=== PATIENT | female | born 1960 | race Caucasian/White ===

== ENCOUNTER → 2017-09-21 | Outpatient (CLI) | payer OTHER ==
--- NOTE | 2017-09-21 13:36 | MAMMOGRAPHY REPORT ---
BILATERAL DIGITAL SCREENING MAMMOGRAM TOMOSYNTHESIS WITH CAD: 09/21/2017 CLINICAL HISTORY: Routine screening. Patient has no complaints. TECHNIQUE: Breast tomosynthesis in addition to standard 2D mammography was performed. Current study was also evaluated with a Computer Aided Detection (CAD) system. COMPARISON: Comparison is made to exams dated: 08/20/2015 mammogram, 08/14/2014 mammogram, 08/08/2013 m ammogram, 07/31/2012 mammogram, 07/31/2011 mammogram, and 08/05/2010 mammogram - [facility]. BREAST COMPOSITION: The tissue of both breasts is extremely dense, which lowers the sensitivity of m ammography. FINDINGS: No suspicious masses, calcifications, or areas of architectural distortion are noted in ei ther breast. There has been no significant interval change compared to prior exams. IMPRESSION: ACR BI-RADS CATEGORY 1: NEGATIVE There is no mammographic evidence of malignancy. A 1 year screening mammogram is recommended. The pa tient will receive written notification of the results. Approximately 10% of breast cancers are not detected with mammography. A negative mammographic report should not delay biopsy if a clinically suggestive mass is present. Anila Watkins M.D. /:09/21/2017 07:37:41 Silk Finisher: Berna Fish, [facility] letter sent: Normal 1/2 BI-RADS Code: ACR BI-RADS Category 1: Negative
== END | disposition home or self-care (01) ==
LOC: C.MAMM 07:16
PROVIDERS: ATTEND Nurse Practitioner Family
DX: Z12.31 Encounter for screening mammogram for malignant neoplasm of breast (principal)

== ENCOUNTER 2023-07-03 08:24 | Observation (INO) ==
--- NOTE | 2023-06-07 09:41 | PAT Medication Instructions ---
Medication Instructions Date of Service June 07, 2023 Home Medications Biest 1 ml topical QAM cholecalciferol (vitamin D3) 10 mcg (400 unit) capsule (Vitamin D3) 1,000 unit PO QAM famotidine 20 mg tablet 20 mg PO DAILY PRN ibuprofen 200 mg tablet 200 mg PO UD PRN progesterone micronized 100 mg capsule 100 mg PO HS trazodone 50 mg tablet 75 mg PO HS zolpidem 5 mg tablet 5 mg PO HS PRN ascorbic acid (vitamin C) 500 mg tablet (Vitamin C) 0 mg PO DAILY calcium 600 mg capsule 0 mg PO QPM multivitamin-ferrous fumarate-folic acid 18 mg-400 mcg tablet (Centrum Women) 1 tab PO QPM naproxen sodium 220 mg tablet (Aleve) 220 mg PO UD PRN turmeric 400 mg capsule 0 mg PO QAM Continue as directed famotidine 20 mg tablet 20 mg PO DAILY PRN(if needed) ASK your surgeon for instructions ibuprofen 200 mg tablet 200 mg PO UD PRN naproxen sodium 220 mg tablet (Aleve) 220 mg PO UD PRN STOP taking 2 weeks before surgery (or as soon as possible if surgery is within 2 weeks) Biest 1 ml topical QAM turmeric 400 mg capsule 0 mg PO QAM DO NOT take the morning of surgery cholecalciferol (vitamin D3) 10 mcg (400 unit) capsule (Vitamin D3) 1,000 unit PO QAM ascorbic acid (vitamin C) 500 mg tablet (Vitamin C) 0 mg PO DAILY Take morning of surgery With a small sip of water, OTHERWISE NOTHING TO EAT OR DRINK AFTER MIDNIGHT: Take evening before surgery progesterone micronized 100 mg capsule 100 mg PO HS trazodone 50 mg tablet 75 mg PO HS zolpidem 5 mg tablet 5 mg PO HS PRN(if needed) calcium 600 mg capsule 0 mg PO QPM multivitamin-ferrous fumarate-folic acid 18 mg-400 mcg tablet (Centrum Women) 1 tab PO QPM Other Notes If you have any questions please call us at [phone] or [phone] or [phone] or [phone]
--- NOTE | 2023-06-12 09:53 | Anesthesiology Consultation ---
Date of Service June 12, 2023 Assessment & Plan (1) Encounter for pre-operative examination: - Infectious disease screening: Per assessment on 06/12/23: No known infectious disease contacts or current infectious disease symptoms. No noted Covid positive test result in past 90 days. - Outpatient joint assessment: Pt currently scheduled for inpatient pathway. If surgeon requests review for outpatient joint pathway, patient is an acceptable candidate for outpatient joint program from anesthesia standpoint pending surgeon's office assessment that patient is motivated, has good support and completes Same Day Joint Program preop requirements. - S/P Left knee arthroscopic PMM (09/07/22): [place] [facility] [place] Patient acceptable risk for surgery pending surgeon-ordered PCP preop evaluation (Verena HUBBARD, appt 06/21). Chart Review Chart Review: Patient seen in Pre Admission Testing Teaching & Discussion Pre-Anesthesia Teaching/Discussion Notes: Instructed NPO after midnight before surgery,except medications with 15 cc of water. Medication instructions provided according to the PAT guidelines. History Surgery Operation Date: 07/03/23 10:15 Proposed Procedures p Right Total Knee Arthroplasty - Herman Jiménez MD Height/Weight Height: 5 ft 8 in Weight: 69.4 kg Allergies Allergy/AdvReac Type Severity Reaction Status Date / Time hydrocortisone Allergy Unknown Rash Verified 06/11/23 10:31 (eyelid), see comments Sulfa (Sulfonamide Allergy Unknown Rash Verified 06/05/23 14:11 Antibiotics) Medications Home Medications Medication Instructions Recorded Confirmed Last Taken Biest 1 ml topical QAM 09/05/22 06/05/23 09/06/22 cholecalciferol (vitamin D3) 10 1,000 unit PO QAM 09/05/22 06/05/23 09/06/22 mcg (400 unit) capsule (Vitamin D3) famotidine 20 mg tablet 20 mg PO DAILY PRN RASH PER 09/05/22 06/05/23 Unknown [employer] ibuprofen 200 mg tablet 200 mg PO UD PRN Pain 09/05/22 06/05/23 Unknown progesterone micronized 100 mg 100 mg PO HS 09/05/22 06/05/23 09/06/22 capsule trazodone 50 mg tablet 75 mg PO HS 09/05/22 06/05/23 09/06/22 zolpidem 5 mg tablet 5 mg PO HS PRN Sleep 09/05/22 06/05/23 09/06/22 ascorbic acid (vitamin C) 500 mg 0 mg PO DAILY 06/05/23 06/05/23 Unknown tablet (Vitamin C) calcium 600 mg capsule 0 mg PO QPM 06/05/23 06/05/23 Unknown multivitamin-ferrous 1 tab PO QPM 06/05/23 06/05/23 Unknown fumarate-folic acid 18 mg-400 mcg tablet (Centrum Women) naproxen sodium 220 mg tablet 220 mg PO UD PRN Pain 06/05/23 06/05/23 Unknown (Aleve) turmeric 400 mg capsule 0 mg PO QAM 06/05/23 06/05/23 Unknown Past Medical History Medical History Scoliosis CXR 06/12/23: mild thoracolumbar scoliosis Hyperlipidemia Mild, "no meds needed" History of COVID-19 07/2021- sore throat, congestion, cough > resolved Exercise / Class Metabolic Activity II 4-5 Yardwork/Stairs/Walk up hill Past Family History Family History Other No family history of adverse response to anesthesia Past Surgical History Surgical History History of arthroscopy of left knee Left knee arthroscopic PMM (09/07/22): [place] [facility] [place]x of colonoscopy History of myringotomy B/L Hx of tonsillectomy Hx of anterior cruciate ligament surgery Hx of arthroscopy of right knee Past Anesthesia History No Hx of Anesthesia Complications and No Family Hx of Anesthesia Complications History of PONV No Hx of PONV and No Hx of Motion Sickness Social History Smoking Status: Never smoker Do You Dip or Chew Tobacco: No Hx Alcohol Use: Yes alcohol intake frequency: holidays/special occasions only Hx Substance Use: No substance use type: does not use Review of Systems Patient denies chest pain, shortness of breath, dyspnea on exertion, fever, chills, cough, wheezing. Physical Exam Vital Signs VITALS BP 117/80 P 70 TEMP 98.5 SP02 98%RA RESP 18 PHYSICAL Full cervical extension range of motion. Full TMJ range of motion. TMD 3 finger breaths Mallampati Score 2 Dentition: intact Lungs: clear throughout to auscultation Cardiac: regular rate and rhythm with occasional extra beat, no murmurs noted Spine: + spinal deviation Carotid arteries: negative bruit Extremities: no LE edema Lab Results Anesthesia Preop Results Results Anesthesia Widget: WBC 5.16 K/ul (4.8-10.8) 06/12/23 Hgb 13.0 g/dl (12.0-16.0) 06/12/23 Hct 38.4 % (37.0-47.0) 06/12/23 Plt 261 K/uL (130-400) 06/12/23 Na 131 mmol/L (136-145) L 06/12/23 K 4.5 mmol/L (3.5-5.1) 06/12/23 Cl 98 mmol/L (98-107) 06/12/23 CO2 28 mmol/L (21-32) 06/12/23 BUN 11 mg/dl (6-23) 06/12/23 Creat 0.73 mg/dl (0.6-1.2) 06/12/23 Glucose Level 122 mg/dl (70-99(Fasting)) H 06/12/23 PT 10.9 Seconds (9.0-12.0) 06/12/23 PTT 29.3 Seconds (21.0-31.0) 06/12/23 INR 1.0 (0.9-1.1) 06/12/23 Blood Type O Positive 06/12/23 Antibody Screen NEGATIVE 06/12/23 Testing Laboratory Results *Chronic hyponatremia- stable from 08/2022 (Na 131 on 09/06/22, Left [place] PM[place] 09[place]07/22 [place] [facility] [place] Electrocardiogram Date: 06/12/23 NSR at 68bpm. Rightward axis. Biventricular hypertrophy. Cannot r/o anterior infarct, age undetermined. *Patient reports good functional status and denies cardiopulmonary limiting complaints at PAT visit from same day* Chest X-Ray Date: 06/12/23 FINDINGS: PA and lateral chest radiographs are obtained. No prior studies are available for comparison at the time of dictation. The cardiomediastinal silhouette is unremarkable. The lungs and pleural spaces are clear. There is no pneumothorax. The skeletal structures are osteopenic. The bony thorax appears intact. There is mild thoracolumbar scoliosis. IMPRESSION: No active disease in the chest.
[~2023-07-03 08:24] MED LIST: ACETAMINOPHEN 500 MG TAB PO SCH; BUPIVACAINE 0.5 % 5 MG/1 ML PF 10ML VIAL ONE; CeleBREX 200 MG CAP PO SCH; FAMOTIDINE 20 MG TAB PO SCH; GABAPENTIN 600 MG DOSE PO SCH; LR 500ML BOLUS, THEN 15ML/HR IV SCH; LR 60ML/HR IV SCH; METOCLOPRAMIDE HCL 10 MG TABLET PO SCH; ROPIVACAINE 0.5% 5 MG/ML 30 ML VIAL ONE; ROPIVACAINE 0.5% HCL/PF 150 MG, BUPIVACAINE 0.75% MPF 20 ML, EPINEPHrine 0.15 MG, Ketor... INFIL SCH; TRANEXAMIC ACID 1,000 MG **IV Pre-op IV SCH; ceFAZolin 2000MG 2,000 MG/15 ML SYR IV SCH; dexAMETHasone 4 MG TAB PO SCH; oxyCODONE HCL 10 MG TABCR (OxyCONTIN) PO SCH; traMADol HCL 50 MG TABLET PO SCH
[2023-07-03] MEDS ORDERED: MIDAZOLAM HCL 1 MG/ML 2ML VIAL ONE (08:50)
[2023-07-03] MEDS ORDERED: HYDROmorphone INJ 2 MG/ML SYR/VIAL IV PRN (09:35)
[2023-07-03] MEDS ORDERED: ePHEDrine sulfate 50 MG/ML AMP IV PRN (09:35)
[2023-07-03] MEDS ORDERED: PROMETHAZINE HCL 12.5 MG in SODIUM CHLORIDE 0.9% 50 ML IV PRN (09:35)
[2023-07-03] MEDS ORDERED: fentaNYL citrate PF 100 MCG/2 ML VIAL IV PRN (09:35)
[2023-07-03] MEDS ORDERED: ONDANSETRON INJ 2 MG/ML 2 ML VIAL IV PRN ×2 (09:35→14:34)
[2023-07-03] MEDS ORDERED: ATROPINE SULFATE 0.1 MG/ML 10ML SYR IV PRN (09:35)
--- NOTE | 2023-07-03 10:00 | History & Physical Bridge Note ---
Date of Service July 03, 2023 History & Physical Bridge Note I have examined the patient, reviewed the History & Physical and in the interval since the performance of the History & Physical I have noted the following changes of clinical significance: no changes noted
[2023-07-03] MEDS ORDERED: ORTHO JOINT ANESTHETIC ONE (10:19)
--- OUTSIDE RECORDS SUMMARY | 2023-07-03 10:46 | External Medical Summary | Continuity of Care Document ---
Author Name Unknown Organization [address] [id number] Care Team Providers Care Obiee Architect Name Role Phone Verena Pearce Primary Care Physician [phone] [id number] Date(s): 06/21/23 - 06/21/[address] [address] [phone] Encounter Diagnosis Pre-op exam(Discharge Diagnosis) - 06/21/23 Hyponatremia(Discharge Diagnosis) - 06/21/23 Hyperlipemia(Discharge Diagnosis) - 06/21/23 Discharge Disposition: Home or Self Care Attending Physician: HAYDEE Pearce Tara Allergies, Adverse Reactions, Alerts Substance Reaction Severity Status hydrocortisone 1 Allergy testing done Mild Act idalia sulfa drugs Rash Active 1allergic to [id number] which is found in hydrocortisone products. Confirmed by allergy testing Assessment and Plan Extracted from: Title:pre op Author:HAYDEE Pearce Tara Date: 1.Pre-op exam 2.Hyponatremia 3.Hyperlipemia Acute/Chronic: chronic Goal:Resolution/ control Status:stable/controlled Data: records/pt report Plan: Pt having left knee replacement on 07/03/23. She has hx of mild hyperlipidemia controlled with diet and activity. She has hx of mild hyponatremia. She was referred to nephrology but did not follow through. After reviewing her labs this has been chronic and stable (129-130). She is asymptomatic. Will do further workup after her surgery. She is non smoker and rare etoh use. She does not have signs of sleep apnea. She is going to be on presentation dose of eliquis post op. Her labs from preop testing are unremarkable except mildly low Na 131. Her CXR is nl. EKG showed NSR. Estimated Risk of Adverse Outcome with Non-cardiac Surgery Very Low Risk Estimated Rate of Myocardial Infarction, Pulmonary Edema, Ventricular Fibrillation, Cardiac Arrest, or Complete Heart Block 0.4 % May proceed with surgery. time spent reviewing chart, face to face visit, ordersand documentation: 36 min Immunizations Given and Recorded Vaccine Date Status Refusal Reason influenza virus vaccine, inactivated 05/11/22 Give n influenza virus vaccine, inactivated 04/22/19 Give n influenza virus vaccine, inactivated 05/16/17 Yemi rded influenza virus vaccine, inactivated 07/25/16 Give n influenza virus vaccine, inactivated 04/07/15 Give n influenza virus vaccine, inactivated 05/22/14 Give n SARS-CoV-2 (COVID-19) mRNA BNT-162b2 vax 1 06/03/21 Recorded tetanus/diphtheria/pertuss, acel (Tdap) 08/17/17 G iven 1Result Comment: 2021-12-07: Historical information-source unspecified Medications Adult Multivitamin Gummies Start: 03/22/23 15:26:00 EDT Start Date: 03/22/23 Status: Ordered Biest(80/20)1mg/[id number] Start: 04/17/23 15:02:00 EDT, Biest(80/20)1mg/[id number], eRx Product Type: Compound, See Instructions, Disp# 1 each, Refills: 0, Apply 1 ml topically every morning., Pharmacy [facility] Start Date: 04/17/23 Status: Ordered calcium (as calcium citrate) 250 mg oral tablet Start: 03/22/23 15:26:00 EDT Start Date: 03/22/23 Status: Ordered progesterone 100 mg oral capsule Start: 05/07/23 18:51:00 EDT, See Instructions, Disp# 30 cap, Refills: 11, TAKE 1 CAPSULE BY MOUTH ONCE DAILY, Pharmacy: [facility] Start Date: 05/07/23 Status: Ordered traZODone 50 mg oral tablet Start: 11/29/22 15:12:00 EDT, See Instructions, Disp# 135 tab, Refills: 3, Take 1.5 tablets PO at bedtime., Pharmacy: [facility] Start Date: 11/29/22 Status: Ordered turmeric Start: 03/22/23 15:27:00 EDT Start Date: 03/22/23 Status: Ordered Vitamin C Start: 06/12/23 8:04:00 EST Start Date: 06/12/23 Status: Ordered Vitamin D3 Start: 12/13/22 13:07:00 EDT Start Date: 12/13/22 Status: Ordered zolpidem 5 mg oral tablet Start: 05/29/23 14:46:00 EST, See Instructions, Disp# 30 tab, Refills: 3, TAKE 1 TAB BY MOUTH AT BEDTIME (DO NOT CRUSH OR CHEW), Pharmacy: [facility] Start Date: 05/29/23 Status: Ordered zolpidem 5 mg oral tablet Start: 02/28/23 17:10:00 EDT, See Instructions, Disp# 30 tab, Refills: 3, TAKE 1 TAB BY MOUTH AT BEDTIME (DO NOT CRUSH OR CHEW), Note to Pharmacy: PDMP reviewed, Pharmacy: [facility] Start Date: 02/28/23 Status: Ordered ZyrTEC 10 mg oral tablet Start: 10/03/13 14:07:00 EDT, 1 tab, PO, Daily, Note to Pharmacy: PRN Start Date: 10/03/13 Status: Ordered Mental Status 06/21/23 Barriers to Learning one year None evide nt Mandatory Health Literacy Documentation Yes Health Literacy Communication Barriers N ever Primary Language Portuguese Problem List Condition Confirmation Course Effective Dates Status Health St atus Informant Medial meniscus tear Confirmed Active Arthritis of knee, right Confirmed Active Dysplastic nevus Confirmed Active Hyperlipemia Confirmed Active Hyponatremia Confirmed Active Knee pain Confirmed Active Menopause syndrome Confirmed Active Asymptomatic menopausal state Confirmed Active Encounter for health maintenance examination in adult Confirmed Active Chronic insomnia Confirmed Active Vitamin D deficiency Confirmed Active Diagnosis Diagnosis Type Effective Dates Health Status inical Service Informant Pre-op exam Discharge Diagnosis 06/21/23 Hyponatremia Discharge Diagnosis 06/21/23 Hyperlipemia Discharge Diagnosis 06/21/23 Procedures Procedure Date Related Diagnosis Body Site Status Bone density scan 1 10/20/22 Compl eted Mammogram 2 10/20/22 Completed Arthroscopy of knee with med ial meniscectomy 3 09/07/22 Completed Bilateral digital screening mammogram tomosynthesis with synthetic 2D with CAD 4 10/14/21 Completed Bilateral digital screening mammogram tomosynthesis with synthetic 2D with CAD 5 10/08/20 Completed MRI of right shoulder 6 05/19/19 C ompleted Mammogram 7 09/27/18 Completed Mammogram 8 09/21/17 Completed Date of last mammogram 9 08/20/15 Completed Mammogram 10 08/20/15 Completed Colonoscopy normal 12/05/13 Comple jennifer Date of last PAP test 11 12/01/13 Completed Date of last mammogram 12 07/31/13 Completed History of knee surgery 1992 Completed Menopause 14 Completed Shave biopsy Completed Tonsillectomy Completed 1T-score of -2.6 2There is no mammographic evidence of malignancy. A 1 year screening mammogram is recommended. 3Left Knee Arthroscopy, Partial Medial Meniscectomy, Chondroplasty 4Impression: ACR BI RADS CATEGORY 1: negative There is no mammographic evidence of malignancy. A 1 year screening mammogram is recommended. (10/15/2022) 5Impression: ACR BI RADS CATEGORY 1: negative There is no mammographic evidence of malignancy. A 1 year screening mammogram is recommended. (10/09/2021) The patient will receive written notification of the results. 61. tear of the anterior and anterior labrum with the torn labru clumped along the anterior inferuirglenoid margin, the rest is scanned into chart 7There is no mammographic evidence of malignancy. A 1yr screening mammogram is recommended. 8There is no mammographic evidence of malignancy. A 1 year screening mammogram is recommended. The patient will receive written notification of the results. 9WNL 10No mammographic evidence of malignancy. 11WNL 12WNL 13right acl [id number] Vital Signs Most recent to oldest [Reference Range]: 1 Patient Weight 69.8 kg (06/21/23 8:32 AM) Heart Rate 75 bpm (06/21/23 8:32 AM) Respiratory Rate 16 br/min (06/21/23 8:32 AM) Blood Pressure 114/72mmHg (06/21/23 8:32 AM) Cuff Pulse Pressure 42 mmHg (06/21/23 8:32 AM) Social History Social History Type Response Smoking Status Never smoked cigaret regina Sex Female FCM Outpt Note * HAYDEE Pearce Tara: PERFORM Event Display: [facility] Outpt Note Authored Date: [id number] Chief Complaint pre op clearance for right knee surgery on 07-03-[address] Jiménez History of Present Illness Pt having left knee replacement on 07/03/[address] Jiménez. Non smoker, rare etoh and no illicit drug use. No Claudication No Chest pain No SOB 2 flights of steps No Personal hx of anesthesia complications No Family hx of anesthesia complications No Dental issues No Personal of hx of VTE No Family hx of VTE No Family hx of sudden cardiac 1. Do you snore loudly (louder than talking or loud enough to be heard through closed doors)? no 2. Do you often feel tired, fatigued or sleepy during daytime hours? yes 3. Has anyone observed you stopping breathing during your sleep? no 4. Do you have or are you being treated for high blood pressure? no 5. BMI more than 35kg/m2? no 6. Is your age over 50 years old? yes 7. Is your neck circumference greater than 17 if you are a male or 16 if you are a female? no 8. Are you a male?no - High risk of ERUM yes to three or more items Low risk of ERUM yes to less than three items Review of Systems Constitutional: No fever, chills, sweats EENT:No vision change, eye pain, rhinorrhea, sinus pain, epistaxis, dysphagia, change in hearing,tinnitus, vertigo, oral ulcers or lesions. Pulmonary: No shortness of breath, dyspnea with exertion, cough, hemoptysis, wheezing, chest pain. Cardiovascular: No chest pain, palpitations, syncope, edema, cyanosis, claudication, orthopnea. Musculoskeletal: No joint swelling or pain, muscle pain, back pain. + knee pain Neurologic: No headache, lightheadedness, dizziness Psychiatric: No depression, anxiety Endocrine: No weight change, heat or cold intolerance, tremor, insomnia, polyuria, polydipsia, polyphagia, abnormal hair growth, change in nails Physical Exam Vitals & Measurements HR:75(Monitored) RR:16 BP:114/72 SpO2:97% WT:69.8kg WT:69.800kg(Dosing) PHQ2 Data(Data Documented on:06/21/2023 08:32) Emotional health assessment NEGATIVE head- normocephalic neck-no lymphadenopathy, masses, or thyromegaly, +carotid pulses, no bruits, trachea midline Pulmonary- chest expansion symmetric, CTA (clear to auscultation), eupnea, no adventitious sounds (rales, crackles, wheezes) CV (cardiovascular)- RRR no m/r/g (systolic ejection murmur, rubs, gallops), good peripheral perfusion extremitiesNo edema or erythema. skin-good turgor w/o lesions, redness, cyanosis, edema nails- no clubbing or deformities w good cap refill Neuro:Alert, Oriented Psy:no homicidal or suicidal ideations. Assessment/Plan 1.Pre-op exam 2.Hyponatremia 3.Hyperlipemia Acute/Chronic: chronic Goal:Resolution/ control Status:stable/controlled Data: records/pt report Plan:Pt having left knee replacement on 07/03/23. She has hx of mild hyperlipidemia controlled with diet and activity. She has hx of mild hyponatremia. She was referred to nephrology but did not follow through. After reviewing her labs this has been chronic and stable (129-130). She is asymptomatic. Will do further workup after her surgery. She is non smoker and rare etoh use. She does not have signs of sleep apnea. She is going to be on presentation dose of eliquis post op. Her labs frompreop testing are unremarkable except mildly low Na 131. Her CXR is nl. EKG showed NSR. Estimated Risk of Adverse Outcome with Non-cardiac Surgery Very Low Risk Estimated Rate of Myocardial Infarction, Pulmonary Edema, Ventricular Fibrillation, Cardiac Arrest,or Complete Heart Block 0.4 % May proceed with surgery. time spent reviewing chart, face to face visit, ordersand documentation: 36 min Problem List/Past Medical History Ongoing Arthritis of knee, right Asymptomatic menopausal state Chronic insomnia Dysplastic nevus Encounter for health maintenance examination in adult Hyperlipemia Hyponatremia Knee pain Medial meniscus tear Menopause syndrome Vitamin D deficiency Historical Anterior dislocation of right humerus Screening for diabetes mellitus (DM) Screening for lipid disorders Procedure/Surgical History Bone density scan (10/20/2022)Mammogram (10/20/2022)Arthroscopy of knee with medial meniscectomy (09/07/2022)Bilateral digital screening mammogram tomosynthesis with synthetic 2D with CAD(10/14/2021)Bilateral digital screening mammogram tomosynthesis with synthetic 2D with CAD (10/08/2020)MRI of right shoulder (05/19/2019)Mammogram (09/27/2018)Mammogram (09/21/2017)Date of last mammogram (08/20/2015)Mammogram (08/20/2015)Colonoscopy normal (12/05/2013)Date of last PAP test (12/01/2013)Date of last mammogram (07/31/2013)History of knee surgery (1992)MenopauseShave biopsyTonsillectomy Medications ascorbic acid(Vitamin C) calcium citrate(calcium (as calcium citrate) 250 mg oral tablet) cetirizine(ZyrTEC 10 mg oral tablet), 10 mg= 1 tab, PO, Daily cholecalciferol(Vitamin D3) multivitamin with minerals(Adult Multivitamin Gummies) progesterone(progesterone 100 mg oral capsule), See Instructions, 11 refills traZODone(traZODone 50 mg oral tablet), See Instructions, 3 refills turmeric unlisted medication(Biest(80/20)1mg/[id number]), See Instructions zolpidem(zolpidem 5 mg oral tablet), See Instructions, 3 refills zolpidem(zolpidem 5 mg oral tablet), See Instructions, 3 refills Allergies hydrocortisone (Mild)Allergy testing done sulfa drugsRash Social History Smoking Status Never smoked cigarettes Alcohol Use:Current Type:Beer Frequency:1-2 times per year 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 Kidney disease: Negative: Mother, Father, Sister and Brother. Myasthenia gravis: Father. Health Status Family Member(s) Immunizations Vaccine Date Status influenza virus vaccine, inactivated 05/11/2022 Given SARS-CoV-2 (COVID-19) mRNA BNT-162b2 vax 06/03/2021 Recorded Comments : 2021-12-07: Historical information-source unspecified influenza virus vaccine, inactivated 04/22/2019 Given tetanus/diphtheria/pertuss, acel (Tdap) 08/17/2017 Given influenza virus vaccine, inactivated 05/16/2017 Recorded influenza virus vaccine, inactivated 07/25/2016 Given influenza virus vaccine, inactivated 04/07/2015 Given influenza virus vaccine, inactivated 05/22/2014 Given Recommendations Health Maintenance Pending(in the next year) OverDue Cervical Cancer Screening due11/30/16nd every 3year Adult Influenza Vaccine due01/20/23and every 1year Due Adult COVID-19 Vaccination due06/21/23Unknown Frequency Hepatitis C Screening due06/21/23One-time only Shingles Vaccine due06/21/23One-time only Due In Future Colorectal Cancer Screening not due until12/03/23and every 10year Body Mass Index not due until06/20/24and every 1year Satisfied(in the past 1 year) Satisfied Body Mass Index on06/12/23.Satisfied by LUISA Mitchell Kelley Electronic Signature on File CC: Herman Jiménez MD [address] [id number] CC: Yuliana Grimaldo PA-C [address] [id number] Electronically Reviewed/Signed by: HAYDEE Stiles Author Signature Dt/Tm:06/21/2023 10:18 AM Department of Family Medicine TB Patient Care team information Care Team Personnel Name: HAYDEE Pearce Tara Position: Nurse Pract - Family Med Member Role: Primary Care Provider Address: Address: [address] [place] [address], [place] [address] Care Team Related Persons Name: TRACEY SIMS Address: home [address] [place], [place] [id number]
[2023-07-03] MEDS ORDERED: PROPOFOL IV EMULSION 10 MG/ML 20 ML VIAL IV ONE (12:48)
--- NOTE | 2023-07-03 13:48 | Operative Report ---
Post Operative Report Pre & Post Diagnosis Operation Date: 07/03/23 10:10 Pre-Op Diagnosis: Right Knee Degenerative Joint Disease Post-Op Diagnosis: Right Knee Degenerative Joint Disease I identified the patient and participated in the time-out.: Yes Procedure Operation Date: 07/03/23 10:10 Actual Procedures p Right Total Knee Arthroplasty, Removal of Right Knee Hardware, (Right) - Herman Jiménez MD Surgeon Herman Jiménez M.D. Dairy Processing Equipment Operator Yuliana Grimaldo PA-C; no fellow or resident available Estimated Blood Loss 20 Findings Consistent with Post-Op Diagnosis Specimens bone and soft tissue Anesthesia Type MAC Spinal Regional Description of Procedure Patient was taken to the operating room, placed under sedation with spinal anesthesia and peripheral nerve block. Time out performed, prepped and draped in routine sterile fashion. She was given 2gm IV Ancef for surgical prophylaxis. She was also given 1gm IV TXA preoperatively. I was present during the entire case, please see Dr. Jiménez's operative report for further detail regarding today's procedure. I attest to the content of the Intraoperative Record and any orders documented therein. Any exceptions are noted below.
--- NOTE | 2023-07-03 13:50 | Operative Report ---
Post Operative Report Pre & Post Diagnosis Operation Date: 07/03/23 10:10 Pre-Op Diagnosis: Right Knee Degenerative Joint Disease Post-Op Diagnosis: Right Knee Degenerative Joint Disease I identified the patient and participated in the time-out.: Yes Procedure Operation Date: 07/03/23 10:10 Actual Procedures p Right Total Knee Arthroplasty, Removal of Right Knee Hardware, (Right) - Herman Jiméenz MD Surgeon Herman Jiménez MD Metal Flow Coordinator Yuliana Grimaldo PA-C; no fellow or resident available Estimated Blood Loss 20 Findings Consistent with Post-Op Diagnosis Specimens ACL screws. Resected bone and soft tissue right knee. Anesthesia Type MAC Spinal Regional Complications none Disposition Accompanied Patient To Recovery: No Disposition: Recovery Room Indications Jewell is 62 years old and has severe arthritis of her right knee. She is status post previous surgery consisting of an ACL reconstruction. She has undergone extensive nonsurgical management without resolution of her symptoms and wishes to have her knee replaced. Description of Procedure Informed consent. Patient identified. She identified the operative site as the right knee. I marked with my initials. A preoperative surgical timeout was performed. A preop dose of IV antibiotics was given. She received TXA. She was taken to the OR positioned supine on the operating room table. A padded bump was placed under the right calf and a tourniquet on the right side. The leg was prepped and draped in usual sterile fashion. DVT prophylaxis with foot pumps intraoperatively. Early mobility mechanical devices and Eliquis postoperatively. The exam under anesthesia revealed a trace bit of varus laxity in full extension. Her range of motion was 0 to 130 degrees of flexion. She had a positive Clara and negative posterior drawer. In mid position her varus deformity was passively correctable to neutral. From that position she had 2+ varus rotational laxity with an intact endpoint. Limb exsanguinated with the Esmarch. Tourniquet inflated 250 mmHg. Midline longitudinal incision was made making use of her prior longitudinal patellar tendon graft harvest site. The incision was about 20 cm in length. I carefully dissected down to the level of the patellar tendon and elevated a full-thickness flap medially. The medial screw was identified in the tibia. Cleaned of soft tissue and easily removed. This was later plugged with a piece of bone. The proximal incision was carried down to the extensor mechanism using electrocautery and a medial flap was elevated followed by medial parapatellar arthrotomy. Retropatellar fat pad was substantially scarred and this was dissected out protecting the patellar tendon and the fat pad was resected. There was substantial marginal osteophytes and grade 2 and 3 chondrosis of the patella. The osteophytes removed. The patella was measured to be 25 mm in thickness. The peripatellar synovium was debrided. She had a notable substantial synovitis with a large effusion. The synovitis was debrided throughout the knee where it was encountered. There is also a partial undersurface fraying of the quadriceps tendon probably from rubbing against the osteophytes on the femur. This was less than 20% thickness located just above the patella and was debrided. Extensive chondral canal calcinosis was also noted and this was debrided as encountered as well. Synovectomy performed. I did note a enlargement on the lateral femur. Soft tissue in nature overlying the lateral epicondyle. It was unsure if this was scarring from previous surgery or whether she had had some type of augmentation done with her ACL. It was soft and about 2 cm in diameter. Did not appear to be fluid-filled. I incised it longitudinally. There is no fluid in.. It was not cystic. It appeared to be enlarged area of scar tissue with synovium. I left it be due to its intimate association with the LCL. The knee was then flexed. The ACL was deficient. The femoral interference screw was identified somewhat central and anterior within the notch and it was also easily removed and both screws were sent for specimen. The PCL was then resected. Large moderate marginal osteophytes around the femur and tibia were resected. The lateral meniscus was partially intact. The meniscal remnants were removed. There was eccentric extensive chondrocalcinosis and synovitis noted which was debrided. Collateral ligaments protected. ACL PCL and meniscal remnants were removed. A medial release was performed. There was significant posterior medial wear and bone loss with thin marginal osteophytes. Osteophytes along the medial and posterior medial tibia were removed. There were large osteophytes on the anteromedial and anterolateral tibia which also were debrided. There were grade 4 changes noted throughout the entire medial compartment with extensive wear. There were grade 3 and 4 changes in the lateral compartment as well. The tibia was then subluxated and the harbor boat pilot hole was drilled just in front of the tibial spines which were largely worn down and flat and in between them. An intramedullary alignment angel was inserted followed by the 0 degree cutting block. This was aligned with the tibial tubercle and set to resect 10 mm off of the lateral side which corresponded to a skim cut and an air cut posteromedially. There was significant posterior tibial slope. Ended up removing much more anterior bone and then posterior. The guide was pinned in the place and the extra medullary alignment angel was applied. [place] was 0 to slight posterior and it intersected the second ray and bisected the ankle joint. This cut was then carefully made and ensured to be flat. This resulted in a area posterior medially about 2-1/2 x 1-1/2 cm of bone defect. Part of this was osteophyte. Bone quality was slightly soft. The lateral portion of the tibial plateau was debrided to ensure that it was flat and the margins of the tibial plateau were defined. Posterolateral osteophyte on the tibia also removed. The tibia was then sized to a 4 however the 300 worked better in terms of rotational position and lateralized ability. Sales Representative Consultant hole was drilled into the distal femur followed by the insertion of the distal femoral cutting guide set at right knee 6 degree valgus based upon preop templating 12 mm thick cut. The guide was pinned into place and the cut was made. The extension gap was then a symmetric 12.5. Later after further debriding and removing osteophytes and finishing the femur the flexion and extension gap were asymmetric 15. The epicondylar axis was marked out. Distal femoral sizing guide was applied and sized to a 4. The high side was a 5 but the more medial side was a 4 which I felt was appropriate. We needed to get to a 4 in order to use the 3 component. The appropriate holes were drilled for the size 4 implant and the matched the epicondylar axis. The size 4 anterior noncutting block was applied. The collateral ligaments were protected and the cuts were made without notching the anterior cortex. Posterior osteophytes especially medially removed. The box cutting guide was applied lateralized and the box cut was made. The size 4 femur fit well. Attention was turned to the tibia. The size 3 was aligned to the tibial tubercle and lateralized. This resulted in no bone defect underneath the tibia implant. It just touch to the anterior portion of the posteromedial bone defect. This was pinned in place and the drill was used for the keel and the punch. Subsequently the trial implant was applied and the knee had full extension neutral alignment intact varus valgus laxity at 01+ MCL and LCL laxity in mid position and no laxity at 90. The patella was measured to 25. The 38 patella was selected. I then went ahead and applied the paddle to preserve 16 mm of bone. The cut was made and the residual patellar thickness was 16. The paddle was distal lysed and medialized. The locals were drilled and patellar tracking was fine with no hands technique. Subsequently there was an area laterally where there was some remaining cartilage. The patellar implant was marked out and this cartilage was curettaged to create a contained defect which was then drilled with a 1.5 mm drill bit. The trial components were removed. The canals and ACL screw holes were plugged. Ortho joint mix was injected in the back of the knee and copious pulsatile lavage was utilized to repair the bone surfaces. Drilling was performed for the hard posteromedial bone. 2 bags of Simplex P cement were vacuum mixed and while in a doughy state the components were cemented into place the femur tibia and the patella. The knee was held in full extension until the cement hardened. Tourniquet was let down after 118 minutes of inflation. Meticulous hemostasis was performed. Bleeding lateral geniculate artery was cauterized. The back of the knee was inspected for cement and there was none. After mentioned stability profile applied. The final polyethylene was inserted. Extraneous cement was removed. The remainder of the Ortho joint mix was injected and the knee was reirrigated. Extensor mechanism closed above the equator the patella with interrupted #2 FiberWire. Below the equator the patella with running and interrupted #1 Vicryl the skin was closed in layers with 0 and 2-0 Vicryl and muriel on the skin. The leg was cleaned with wet and dry sponges and a soft sterile dressing was applied Xeroform 4 x 4's ABD soft wrap and a full-length Dom. Knee immobilizer. Patient was awakened from anesthesia and taken to recovery in stable condition. There were no complications. Counts were correct. Blood loss was estimated to be 20 cc. At conclusion the operation spoke to patient's informed of my findings and gave postop instructions. Components inserted with a J[employer]J PFC Sigma rotating platform knee a size 3 mobile- bearing keeled tibial tray with a size 4 x 15 mm posterior stabilized polyethylene insert. A 38 mm 3 peg oval dome patella and a size 4 right posterior stabilized femur. She will rehabilitate according to the standard total knee protocol. Blood thinners will be given in the morning. Composite patellar thickness was 25 and half millimeters. [place] assisted flexion with extensor mechanism closed was 125 degrees. I attest to the content of the Intraoperative Record and any orders documented therein. Any exceptions are noted below.
--- NOTE | 2023-07-03 14:20 | Anesthesiology Progress Note ---
Date of Service July 03, 2023 Anesthesia Post Procedure Vital Signs Vital Signs: Temp Pulse Pulse Resp BP Pulse Ox O2 Del Method 07/03/23 14:15 37.3 C 78 17 137/77 99 Room Air 07/03/23 14:05 79 15 131/89 97 Room Air 07/03/23 13:55 77 14 139/84 98 Room Air 07/03/23 13:47 37.2 C 86 13 145/92 H 100 Oxymask 07/03/23 08:55 37.1 C 73 20 134/83 99 Room Air O2 Flow Rate 07/03/23 14:15 07/03/23 14:05 07/03/23 13:55 07/03/23 13:47 6 07/03/23 08:55 Pain Intensity Back: Pain Intensity: 4 Right Thigh: Pain Intensity: 2 Transfer of Care Handoff Completed per policy Notes Mental Status: alert / awake / arousable and participated in evaluation Nausea / Vomiting: adequately controlled Pain: adequately controlled Airway Patency, RR, SpO2: stable & adequate BP & HR: stable & adequate Hydration State: stable & adequate Neuraxial Anesthesia: was administered and sensory block is resolving Anesthetic Complications: no major complications apparent and Pt Satisfied with anesthetic care
[2023-07-03] MEDS ORDERED: oxyCODONE HCL IR 5 MG TAB (IMMEDIATE RELEASE) PO PRN (14:34)
[2023-07-03] MEDS ORDERED: bisacodyL 10 MG SUPP PR PRN (14:34)
[2023-07-03] MEDS ORDERED: FAMOTIDINE 20 MG TAB PO PRN (14:34)
[2023-07-03] MEDS ORDERED: METOCLOPRAMIDE HCL INJ 5 MG/ML 2 ML VIAL IV PRN (14:34)
[2023-07-03] MEDS ORDERED: traMADol HCL 50 MG TABLET PO PRN (14:34)
[2023-07-03] MEDS ORDERED: HYDROmorphone INJ 0.5 MG/0.5 ML SYR IV PRN (14:34)
[2023-07-03] MEDS ORDERED: ZOLPIDEM TARTRATE 5 MG TAB PO PRN (14:34)
[2023-07-03] MEDS ORDERED: MAGNESIUM HYDROXIDE SUSP 30 ML UDC PO PRN (14:34)
[2023-07-03] MEDS ORDERED: NALOXONE HCL 0.4 MG/1 ML VIAL/CARP IV PRN (14:34)
[2023-07-03] MEDS ORDERED: HYDROmorphone INJ 1 MG/ML SYRINGE IV PRN (14:34)
--- NOTE | 2023-07-03 14:44 | XRay Report ---
RIGHT KNEE 2 VIEWS History: Right total knee arthroplasty. Degenerative arthritis. Postop. FINDINGS: The patient is status post a right total knee arthroplasty. The hardware is intact. No frac ture or dislocation. Skin muriel are in place. IMPRESSION: Right total knee arthroplasty. No evidence for hardware complication. ACT 112: Negative or not required by law. Electronically signed by: Sukhdev Lewis M.D. 07/03/2023 2:43 PM
[2023-07-03] MEDS: KETOROLAC 30 MG/ML VIAL IV SCH ×2 (15:27→20:04)
[2023-07-03] MEDS: ACETAMINOPHEN 500 MG TAB PO SCH ×2 (15:27→21:26)
[2023-07-03] MEDS: SODIUM CHLORIDE 0.9% 1,000 ML IV SCH (15:27)
--- NOTE | 2023-07-03 16:50 | Orthopedic Progress Note ---
Date of Service July 03, 2023 Assessment & Plan (1) Status post right knee replacement: Plan: Doing well. Operative findings discussed. Postoperative plan reviewed. Routine course of postop IV antibiotics. PT and OT. Discussed activity levels and precautions. Thinner beginning in the morning. X-rays are reviewed. Admission and Anticipated Discharge Date Admission Date: July 03, 2023 Subjective Doing well. No problems reported. Still has some numbness and weakness in her foot. Secondary to the block. Physical Exam Physical Exam: DP and PT pulses are 1+. Foot warm. She has 4+ to 5- out of 5 strength with ankle and toe plantarflexion dorsiflexion inversion and eversion. Dressing is clean dry and intact. Results & Data Vital Signs (Past 12 Hours) Vital Signs Temp Pulse Pulse Resp BP Pulse Ox O2 Del Method 07/03/23 15:29 36.4 C L 87 14 138/90 99 Room Air 07/03/23 14:45 80 21 137/94 100 Room Air 07/03/23 14:30 77 19 137/86 96 Room Air 07/03/23 14:15 37.3 C 78 17 137/77 99 Room Air 07/03/23 14:05 79 15 131/89 97 Room Air 07/03/23 13:55 77 14 139/84 98 Room Air 07/03/23 13:47 37.2 C 86 13 145/92 H 100 Oxymask 07/03/23 08:55 37.1 C 73 20 134/83 99 Room Air O2 Flow Rate 07/03/23 15:29 07/03/23 14:45 07/03/23 14:30 07/03/23 14:15 07/03/23 14:05 07/03/23 13:55 07/03/23 13:47 6 07/03/23 08:55
[2023-07-03] MEDS: ceFAZolin 2000MG 2,000 MG/15 ML SYR IV SCH (19:59)
[2023-07-03] MEDS ORDERED: TRANEXAMIC ACID / 0.7% NACL 1,000 MG/100 ML BAG IV SCH (20:00)
[2023-07-03] MEDS: SENNA 8.6 MG TAB PO SCH (20:03)
[2023-07-03] MEDS: MULTIVITAMIN TAB PO SCH (20:04)
[2023-07-03] MEDS: DOCUSATE SODIUM 100 MG CAP PO SCH (20:04)
[2023-07-03] MEDS: CALCIUM CARBONATE 1250MG TAB PO SCH (20:04)
[2023-07-03] MEDS ORDERED: traZODone HCL 50 MG TAB PO SCH (21:00)
[2023-07-04] MEDS ORDERED: SODIUM CHLORIDE 0.9% 500 ML IV ONE ×2 (01:15→10:15)
--- NOTE | 2023-07-04 01:20 | Hospitalist Consultation ---
Date of Consultation July 04, 2023 Assessment & Plan (1) Lightheadedness: -Non-syncopal lightheadedness very likely an orthostatic/vasovagal event given pt's surgery on day prior, volume depletion after urination with resultant BP 70/40 -S/p 500cc NSS bolus, will run fluids at slow maintenance rate for now -EKG at bedside reassuring against arrhythmia or ischemic event -Multiple labs ordered for further evaluation- CBC, CMP, Mg, Phos, lactate, troponin -Will tailor further workup pending lab results -Clinically there is low suspicion for seizure, arrhythmia, ischemia underlying this event -Hospitalist will continue to follow (2) Hypotension: -Likely secondary to volume depletion and suspected inadequate oral intake in postoperative setting -Maintenance IVF as above -Pt is not on any medications currently which can trigger hypotension -Would avoid PRN opioid medications in interim- will discontinue PRN orders and defer pain management to orthopedic primary (3) Status post right knee replacement: -Postoperative care, pain control, DVT ppx per primary orthopedics Supervising Physician Co-Signing Physician Notes I have personally seen, evaluated and examined the patient. I have also personally discussed the management of the patient with the resident physician and I agree with the exam findings documented in the history and physical examination and the documented assessment and plan unless otherwise stated below. Upon further history taking I did speak with the patient's registered nurse Emily -he does inform you that the patient did have what appeared to be morro syncope. She had just gotten up to use the restroom she micturated with assistance got back up to move back out to her bed in the doorway she complained of lightheadedness she was lowered into the bed by staff and was unresponsive for approximately a minute according to the registered nurse this is 1 code purple was called. The patient's statements when she had arthroscopic knee surgery some years ago she had a similar event at home after discharge. The patient denies any current complaints. She denies any lightheadedness now she denies any chest pain ever this evening or shortness of breath this evening. The patient's EKG was reviewed she does have a sinus rhythm which appears to be a sinus dysrhythmia mildly irregular but no significant dysrhythmia PACs or PVCs. No acute ST-T abnormalities. 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 HEENT: Normocephalic atraumatic pupils are equal round and reactive to light bilaterally. No scleral icterus no conjunctival injection external auditory canals are patent septum is in the midline nose is without discharge oral mucosa is pink and moist without lesion. NECK: Supple no rigidity no lymphadenopathy no thyromegaly no carotid bruits no JVD no masses. HEART: Regular rate and rhythm I do not appreciate any ectopy or rub. No murmur. LUNGS: Clear to auscultation bilaterally and anteriorly with no evidence of adventitious sounds/wheezes rales or rhonchi. ABDOMEN: Soft nontender, no rebound, no peritoneal signs, positive bowel sounds, no appreciable organomegaly. EXTREMITIES: Intact, no peripheral cyanosis, clubbing or edema. Strength is 5 out of 5 in extremities x4, no pathological reflexes. NEUROLOGICAL: Cranial nerves II through XII are grossly intact with no focal deficit elicited upon examination. No tremor. Assessment/plan -morro syncope probably secondary to vasovagal event which is multifactorial from just using the restroom to be in postoperative nature to pain medication and being probably mildly hypovolemic from extended n.p.o. status preoperatively and perioperatively. My clinical suspicion for cardiogenic syncope is extremely low. However given the patient's age and event described above she will be transferred to telemetry for telemetry monitoring. Laboratory studies are pending. If there is no further events the patient can probably be safely discharged home to follow-up with PCP. Certainly if there is any dysrhythmias or lab abnormalities will be addressed accordingly at the time of unveiling. Echocardiogram can be considered on day shift upon results of lab studies as well as telemetry monitoring overnight. History of Present Illness Reason for Consultation: Code purple- lightheadedness Requesting Physician: Herman Jiménez MD Attending Physician: Herman Jiménez MD History of Present Illness Pt is 62 yo F s/p R total knee arthroplasty 07/03. Hospitalist consultation requested after episode of lightheadedness w/ hypotension leading to Code Purple on 07/04. Hector barr called around 1 AM on 07/04 after pt finished urinating and felt sudden lightheadedness, nearly collapsing but she did not lose consciousness or have any post-event confusion. Arrived to code and pt was present in bathroom, BP taken then was ~70/40. Pt was transferred with assistance to bed and 500cc NSS bolus was started. Returned approximately 10 minutes later for evaluation and further history obtained. Pt was doing well after surgery on 07/03 with only one complaint of soreness around R knee surgical site. She did eat and drink adequately. Pt notes lightheadedness only after urinating, did not have any symptoms prior to this. Denies chest pain, dyspnea, palpitations, fever, chills. No previous history of syncope though she does note in past she has felt lightheaded with low blood sugar. Pt states she feels largely back to baseline with only very residual lightheadedness persisting. Denies any other acute complaints. 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 200 mg tablet 200 mg PO UD PRN Pain 09/05/22 07/03/23 History progesterone micronized 100 mg 100 mg PO HS 09/05/22 07/03/23 History capsule trazodone 50 mg tablet 75 mg PO HS 09/05/22 07/03/23 History zolpidem 5 mg tablet 5 mg PO HS PRN Sleep 09/05/22 07/03/23 History ascorbic acid (vitamin C) 500 mg 0 mg PO DAILY 06/05/23 07/03/23 History tablet (Vitamin C) calcium 600 mg capsule 0 mg PO QPM 06/05/23 07/03/23 History multivitamin-ferrous 1 tab PO QPM 06/05/23 07/03/23 History fumarate-folic acid 18 mg-400 mcg tablet (Centrum Women) naproxen sodium 220 mg tablet 220 mg PO UD PRN Pain 06/05/23 07/03/23 History (Aleve) turmeric 400 mg capsule 0 mg PO QAM 06/05/23 07/03/23 History Patient History Medical History Scoliosis CXR 06/12/23: mild thoracolumbar scoliosis Hyperlipidemia Mild, "no meds needed" History of COVID-19 07/2021- sore throat, congestion, cough > resolved Surgical History History of arthroscopy of left knee Left knee arthroscopic PMM (09/07/22[place] [facility] [place] History of myringotomy B/L Hx of tonsillectomy Hx of anterior cruciate ligament surgery Hx of arthroscopy of right knee Family History Other No family history of adverse response to anesthesia Social History Smoking Status: Never smoker Second Hand Exposure: No; Do You Dip or Chew Tobacco: No; Hx Alcohol Use: Yes Hx Substance Use: No Preferred Language: Icelandic Communication Ability: Effective Filing And Polishing Supervisor Required: No Beliefs That Will Affect Care: None Current Living Situation: Spouse Feels Safe at Home: Yes Assistive Devices: Glasses Review of Systems Review of Systems: Per HPI/Subjective Physical Exam Physical Exam: General: well-appearing, no acute distress HEENT: EOMI, conjunctivae clear without injection, anicteric sclerae, dry mucous membranes, clear oropharynx without exudate or erythema Neck: supple, trachea midline, no JVD CV: RRR, normal S1 and S2, no murmurs Resp: CTAB, no increased work of breathing, no crackles or wheezes Neuro: AOx3, no focal motor or sensory deficits Skin: no skin tenting observed Results & Data Results & Data Vital Signs (Past 12 Hours) Vital Signs Temp Pulse Pulse Resp BP Pulse Ox O2 Del Method 07/03/23 23:32 36.7 C 68 18 118/69 96 Room Air 07/03/23 19:44 36.4 C L 87 18 128/77 98 Room Air 07/03/23 18:00 36.8 C 88 16 145/85 H 98 Room Air 07/03/23 16:50 93 H 15 110/74 98 Room Air 07/03/23 15:29 36.4 C L 87 14 138/90 99 Room Air 07/03/23 15:00 36.5 C 75 16 142/89 H 98 Room Air 07/03/23 14:45 80 21 137/94 100 Room Air 07/03/23 14:30 77 19 137/86 96 Room Air 07/03/23 14:15 37.3 C 78 17 137/77 99 Room Air 07/03/23 14:05 79 15 131/89 97 Room Air 07/03/23 13:55 77 14 139/84 98 Room Air 07/03/23 13:47 37.2 C 86 13 145/92 H 100 Oxymask O2 Flow Rate 07/03/23 23:32 07/03/23 19:44 07/03/23 18:00 07/03/23 16:50 07/03/23 15:29 07/03/23 15:00 07/03/23 14:45 07/03/23 14:30 07/03/23 14:15 07/03/23 14:05 07/03/23 13:55 07/03/23 13:47 6 Resident Activity Tracking Resident Involvement: Resident Care Provided Care Provided: Adult Hospital Medicine
[2023-07-04] MEDS: SODIUM CHLORIDE 0.9% 1,000 ML IV SCH (01:28)
[2023-07-04] MEDS ORDERED: SODIUM CHLORIDE 0.9% 500 ML IV SCH ×2 (01:45→10:15)
[2023-07-04 02:00] LABS: Albumin Globulin Ratio 1.8 (0.9-2); Albumin Level 3.5 gm/dl (3.4-5.0); BUN Creatinine Ratio 15.9 (10-20); Bilirubin,Total 1.1 mg/dl (0.2-1.0); Calcium 8.9 mg/dl (8.6-10.3); Creatinine Clr Calc Pharmacy 68.6 ml/min; Est GFR (African American) 82.8 ml/min; Est GFR (Non-African American) 71.4 ml/min; Magnesium 1.9 mg/dl (1.7-2.4); Phosphorus 3.5 mg/dl (2.5-4.9); Total Protein 5.5 gm/dl (6.0-8.3)
[2023-07-04 02:06] LABS: Troponin I High Sensitivity 3.7 pg/ml (0-14)
[2023-07-04 02:08] LABS: Hemoglobin 10.4 g/dl (12.0-16.0); Mean Corpuscular Hemoglobin 31.6 pg (25.0-34.0); Mean Corpuscular Hgb Conc 34.7 g/dL (32.0-36.0); Mean Corpuscular Volume 91.2 fL (80.0-100.0); Mean Platelet Volume 9.6 fL (9.4-12.4); Platelet Count 239 K/uL (130-400); RDW Coefficient of Variation 12.4 % (11.5-14.5); RDW Standard Deviation 41.1 fL (36.4-46.3); Red Blood Count 3.29 M/uL (4.20-5.40); White Blood Count 13.47 K/ul (4.8-10.8)
--- NOTE | 2023-07-04 02:16 | Billing Data ---
Date of Service July 04, 2023 Coding Level of Care Code 62555 INT INP/OBS CARE
[2023-07-04] MEDS: KETOROLAC 30 MG/ML VIAL IV SCH ×2 (02:39→09:00)
[2023-07-04 03:42] LABS: Hematocrit (blood only) 28.4 % (37.0-47.0); Hemoglobin 9.8 g/dl (12.0-16.0); Mean Corpuscular Hemoglobin 31.3 pg (25.0-34.0); Mean Corpuscular Hgb Conc 34.5 g/dL (32.0-36.0); Mean Corpuscular Volume 90.7 fL (80.0-100.0); Mean Platelet Volume 9.5 fL (9.4-12.4); Platelet Count 203 K/uL (130-400); RDW Coefficient of Variation 12.4 % (11.5-14.5); RDW Standard Deviation 41.2 fL (36.4-46.3); Red Blood Count 3.13 M/uL (4.20-5.40)
[2023-07-04 03:48] LABS: BUN Creatinine Ratio 16.9 (10-20); Calcium 8.7 mg/dl (8.6-10.3); Creatinine Clr Calc Pharmacy 72.7 ml/min; Est GFR (African American) 88.8 ml/min; Est GFR (Non-African American) 76.6 ml/min
[2023-07-04] MEDS: ceFAZolin 2000MG 2,000 MG/15 ML SYR IV SCH (04:29)
[2023-07-04] MEDS: ACETAMINOPHEN 500 MG TAB PO SCH ×3 (06:22→21:05)
--- NOTE | 2023-07-04 07:12 | Hospitalist Progress Note ---
Date of Service July 04, 2023 Assessment & Plan (1) Lightheadedness: Plan: -Non-syncopal lightheadedness very likely an orthostatic/vasovagal event given pt's surgery on day prior, volume depletion after urination with resultant BP 70/40 - Acute blood loss anemia -S/p 500cc NSS bolus, maintenance fluids overnight, blood pressure stable, Hypotension secondary to hypovolemia, resuscitated (2) Status post right knee replacement: Plan: -07/03/23, Dr Jiménez Postoperative care, pain control, DVT ppx per primary orthopedics-apixiban 2.5 bid Admission and Anticipated Discharge Date Admission Date: July 03, 2023 Subjective pt is doing well, feeling tired, has acute blood loss anemia, will hydrate and follow Physical Exam Physical Exam: pt is awake and alert cardiac exam is regular lungs are clear abd is soft knee is dressed Results & Data Results & Data Vital Signs (Past 12 Hours) Vital Signs Temp Pulse Pulse Pulse Resp BP Pulse Ox 07/04/23 02:40 76 07/04/23 02:30 98.1 F 69 18 126/72 100 07/03/23 23:32 98.1 F 68 18 118/69 96 07/03/23 19:44 97.5 F L 87 18 128/77 98 O2 Del Method 07/04/23 02:40 07/04/23 02:30 Room Air 07/03/23 23:32 Room Air 07/03/23 19:44 Room Air Laboratory Results reviewed CBC reviewed CHEM PG Care Time/CCT Total # of Minutes Spent Total Time Spent with Patient: Total time spent is greater than 50% in coordination of care (as documented) at patient's floor/unit and/or counseling patient: Coding Level of Care Code 22371 SUB INP/OBS CARE 2/35MIN Diagnoses Lightheadedness R42 Status post right knee replacement Z96.651
[2023-07-04] MEDS ORDERED: dexAMETHasone 4 MG TAB PO SCH (08:00)
[2023-07-04] MEDS: DOCUSATE SODIUM 100 MG CAP PO SCH ×2 (09:00→21:32)
[2023-07-04] MEDS: ASCORBIC ACID 500 MG TAB PO SCH (09:00)
[2023-07-04] MEDS: CHOLECALCIFEROL 1,000 UNITS 25 MCG TAB PO SCH (09:00)
[2023-07-04] MEDS: APIXABAN 2.5 MG TAB PO SCH ×2 (09:00→21:06)
[2023-07-04] MEDS ORDERED: oxyCODONE HCL IR 5 MG TAB (IMMEDIATE RELEASE) PO PRN (10:24)
--- NOTE | 2023-07-04 10:55 | Orthopedic Progress Note ---
Date of Service July 04, 2023 Assessment & Plan (1) Status post right knee replacement: Plan: Postop day 1-right total knee arthroplasty with Dr. Jiménez. She may be out of bed, weight-bear as tolerated on the right lower extremity with the assistance of a walker. May discontinue the knee immobilizer when able to perform good quad control. May also use as needed with ambulating. PT and OT as ordered. Eliquis 2.5 mg to start this morning for DVT prophylaxis. Will also continue CHAGO stockings and AV impulse boots during her inpatient stay. Regular diet as ordered. Will resume as needed tramadol and oxycodone as this was discontinued last evening. Advised to take sparingly but add an as needed basis. She is going to start with tramadol. Will plan to continue her inpatient stay for another 24 hours. Plan to change her dressing tomorrow morning. Dr. Jiménez present for today's visit. Patient understands and agrees to the plan. Plan for discharge home tomorrow if syncopal episodes and lightheadedness resolves. (2) Lightheadedness: Plan: Appreciate medicine assistance in consultation and management of lightheadedness. Agree with continuing IV fluids. Will resume tramadol and oxycodone as needed medications to be taken on an as- needed basis. Will plan to keep her here another day for monitoring. Agree with telemetry. Will continue to monitor. Admission and Anticipated Discharge Date Admission Date: July 03, 2023 Subjective Patient is currently resting in bed. She is status post a right total knee arthroplasty by Dr. Jiménez. She denies any lightheadedness or dizziness while resting. She did have another episode of feeling lightheaded and like she was going to pass out while ambulating with physical therapy today. Her symptoms are resolved with lying down or resting. She denies any significant pain in her right knee. Pain 4-5 out of 10. Controlled with Toradol. She does feel that she might need something more for pain. She denies any chest pain or shortness of breath. She is tolerating regular diet. Denies any postoperative nausea or vomiting. Review of Systems Review of Systems: As per HPI. Physical Exam Musculoskeletal: Exam of her right lower extremity: Her postoperative dressings are clean, dry and intact. Toes have normal sensation. She has full ankle mobility and normal strength. Dorsalis pedis and posterior tibial pulses 1+. Calf is supple and nontender. Results & Data Vital Signs (Past 12 Hours) Vital Signs Temp Pulse Pulse Pulse Resp BP Pulse Ox 07/04/23 09:54 71 07/04/23 06:00 36.8 C 79 18 124/69 98 07/04/23 02:40 76 07/04/23 02:30 36.7 C 69 18 126/72 100 07/03/23 23:32 36.7 C 68 18 118/69 96 O2 Del Method 07/04/23 09:54 07/04/23 06:00 Room Air 07/04/23 02:40 07/04/23 02:30 Room Air 07/03/23 23:32 Room Air Laboratory Results 07/04/23 07/04/23 07/04/23 Range/Units 03:14 01:18 00:58 WBC 11.70 H 13.47 H (4.8-10.8) K/ul RBC 3.13 L 3.29 L (4.20-5.40) M/uL Hgb 9.8 L 10.4 L (12.0-16.0) g/dl Hct 28.4 L 30.0 L (37.0-47.0) % MCV 90.7 91.2 (80.0-100.0) fL MCH 31.3 31.6 (25.0-34.0) pg MCHC 34.5 34.7 (32.0-36.0) g/dL RDW Std Deviation 41.2 41.1 (36.4-46.3) fL RDW Coeff of Niall 12.4 12.4 (11.5-14.5) % Plt Count 203 239 (130-400) K/uL MPV 9.5 9.6 (9.4-12.4) fL Sodium 131 L 131 L (136-145) mmol/L Potassium 4.0 4.0 (3.5-5.1) mmol/L Chloride 101 100 (98-107) mmol/L Carbon Dioxide 25 24 (21-32) mmol/L Anion Gap 5 7 (3-11) BUN 14 14 (6-23) mg/dl Creatinine 0.83 0.88 (0.6-1.2) mg/dl Est Cr Clr Drug Dosing 72.7 68.6 ml/min Est GFR ( Amer) 88.8 82.8 ml/min Est GFR (Non-Af Amer) 76.6 71.4 ml/min BUN/Creatinine Ratio 16.9 15.9 (10-20) Glucose 143 H 132 H (70-99(Fasting)) mg/dl POC Glucose 116 H (70-99) mg/dl Lactate 1.7 2.1 H* (0.4-2.0) mmol/L Calcium 8.7 8.9 (8.6-10.3) mg/dl Phosphorus 3.5 (2.5-4.9) mg/dl Magnesium 1.9 (1.7-2.4) mg/dl Total Bilirubin 1.1 H (0.2-1.0) mg/dl AST 15 (13-39) U/L ALT 13 (7-52) U/L Alkaline Phosphatase 44 (34-104) U/L Troponin I High Sens 3.7 (0-14) pg/ml Total Protein 5.5 L (6.0-8.3) gm/dl Albumin 3.5 (3.4-5.0) gm/dl Globulin 2.0 L (2.5-4.0) gm/dl Albumin/Globulin Ratio 1.8 (0.9-2)
--- NOTE | 2023-07-04 14:32 | Electrocardiogram Report ---
Test Reason : Blood Pressure : / mmHG Vent. Rate : 069 BPM Atrial Rate : 069 BPM P-R Int : 160 ms QRS Dur : 102 ms QT Int : 454 ms P-R-T Axes : 071 082 060 degrees QTc Int : 486 ms Sinus rhythm with sinus arrhythmia with frequent Premature ventricular complexes Abnormal ECG When compared with ECG of 12-JUN-2023 10:10, Premature ventricular complexes are now Present Confirmed by Alejandro Finley ([id number]) on 07/04/2023 2:32:22 PM Referred By: Herman Jiménez Confirmed By:Alejandro Finley
[2023-07-04] MEDS: traMADol HCL 50 MG TABLET PO PRN (17:39)
--- NOTE | 2023-07-04 18:04 | Orthopedic Progress Note ---
Date of Service July 04, 2023 Assessment & Plan (1) Lightheadedness: (2) Status post right knee replacement: Plan: stable post op, change dressing in AM Admission and Anticipated Discharge Date Admission Date: July 03, 2023 Subjective no SOB or lightheaded even w PT Results & Data Vital Signs (Past 12 Hours) Vital Signs Temp Pulse Pulse Resp BP Pulse Ox Pulse Ox 07/04/23 15:57 90 07/04/23 15:00 36.7 C 77 18 149/63 H 97 07/04/23 14:07 95 07/04/23 11:00 36.6 C 81 16 109/74 100 07/04/23 09:54 71 O2 Del Method O2 Flow Rate 07/04/23 15:57 07/04/23 15:00 Room Air 07/04/23 14:07 0 07/04/23 11:00 Room Air 07/04/23 09:54
[2023-07-04] MEDS ORDERED: traZODone HCL 50 MG TAB PO SCH (21:00)
[2023-07-04] MEDS: SENNA 8.6 MG TAB PO SCH (21:05)
[2023-07-04] MEDS: CALCIUM CARBONATE 1250MG TAB PO SCH (21:06)
[2023-07-04] MEDS: MULTIVITAMIN TAB PO SCH (21:06)
[2023-07-05] MEDS: traMADol HCL 50 MG TABLET PO PRN ×3 (02:19→12:44)
[2023-07-05] MEDS: ACETAMINOPHEN 500 MG TAB PO SCH ×2 (06:24→15:11)
--- NOTE | 2023-07-05 07:34 | Discharge Summary ---
Date of Service July 05, 2023 Specialty Data Hospitalist 07/04/2023 (1) Lightheadedness: Plan: -Non-syncopal lightheadedness very likely an orthostatic/vasovagal event given pt's surgery on day prior, volume depletion after urination with resultant BP 70/40 - Acute blood loss anemia -S/p 500cc NSS bolus, maintenance fluids overnight, blood pressure stable, Hypotension secondary to hypovolemia, resuscitated (2) Status post right knee replacement: Plan: -07/03/23, Dr Jiménez Postoperative care, pain control, DVT ppx per primary orthopedics-apixiban 2.5 bid 07/04/2023 (1) Lightheadedness: -Non-syncopal lightheadedness very likely an orthostatic/vasovagal event given pt's surgery on day prior, volume depletion after urination with resultant BP 70/40 -S/p 500cc NSS bolus, will run fluids at slow maintenance rate for now -EKG at bedside reassuring against arrhythmia or ischemic event -Multiple labs ordered for further evaluation- CBC, CMP, Mg, Phos, lactate, troponin -Will tailor further workup pending lab results -Clinically there is low suspicion for seizure, arrhythmia, ischemia underlying this event -Hospitalist will continue to follow (2) Hypotension: -Likely secondary to volume depletion and suspected inadequate oral intake in postoperative setting -Maintenance IVF as above -Pt is not on any medications currently which can trigger hypotension -Would avoid PRN opioid medications in interim- will discontinue PRN orders and defer pain management to orthopedic primary (3) Status post right knee replacement: -Postoperative care, pain control, DVT ppx per primary orthopedics Supervising Physician Co-Signing Physician Notes I have personally seen, evaluated and examined the patient. I have also personally discussed the management of the patient with the resident physician and I agree with the exam findings documented in the history and physical examination and the documented assessment and plan unless otherwise stated below. Upon further history taking I did speak with the patient's registered nurse Emily -he does inform you that the patient did have what appeared to be morro syncope. She had just gotten up to use the restroom she micturated with assistance got back up to move back out to her bed in the doorway she complained of lightheadedness she was lowered into the bed by staff and was unresponsive for approximately a minute according to the registered nurse this is 1 code purple was called. The patient's statements when she had arthroscopic knee surgery some years ago she had a similar event at home after discharge. The patient denies any current complaints. She denies any lightheadedness now she denies any chest pain ever this evening or shortness of breath this evening. The patient's EKG was reviewed she does have a sinus rhythm which appears to be a sinus dysrhythmia mildly irregular but no significant dysrhythmia PACs or PVCs. No acute ST-T abnormalities. 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 HEENT: Normocephalic atraumatic pupils are equal round and reactive to light bilaterally. No scleral icterus no conjunctival injection external auditory canals are patent septum is in the midline nose is without discharge oral mucosa is pink and moist without lesion. NECK: Supple no rigidity no lymphadenopathy no thyromegaly no carotid bruits no JVD no masses. HEART: Regular rate and rhythm I do not appreciate any ectopy or rub. No murmur. LUNGS: Clear to auscultation bilaterally and anteriorly with no evidence of adventitious sounds/wheezes rales or rhonchi. ABDOMEN: Soft nontender, no rebound, no peritoneal signs, positive bowel sounds, no appreciable organomegaly. EXTREMITIES: Intact, no peripheral cyanosis, clubbing or edema. Strength is 5 out of 5 in extremities x4, no pathological reflexes. NEUROLOGICAL: Cranial nerves II through XII are grossly intact with no focal deficit elicited upon examination. No tremor. Assessment/plan -morro syncope probably secondary to vasovagal event which is multifactorial from just using the restroom to be in postoperative nature to pain medication and being probably mildly hypovolemic from extended n.p.o. status preoperatively and perioperatively. My clinical suspicion for cardiogenic syncope is extremely low. However given the patient's age and event described above she will be transferred to telemetry for telemetry monitoring. Laboratory studies are pending. If there is no further events the patient can probably be safely discharged home to follow-up with PCP. Certainly if there is any dysrhythmias or lab abnormalities will be addressed accordingly at the time of unveiling. Echocardiogram can be considered on day shift upon results of lab studies as well as telemetry monitoring overnight. Discharge Data Consultations 07/04/23 01:08 Consult Medical [Consult Internal Medicine] Routine Procedures Performed Operation Date: 07/03/23 10:10 Actual Procedures p Right Total Knee Arthroplasty, Removal of Right Knee Hardware, (Right) - Herman Jiménez MD Hospital Course (1) Status post right knee replacement: Patient was kept in observation in [facility] after undergoing elective right total knee arthroplasty and deep hardware removal with Dr. Jiménez in July 03, 2023. Her surgery was performed with spinal anesthesia, IV sedation and peripheral nerve block. She tolerated the procedure well without any intraoperative complications. In the recovery room she had x- rays of her right knee which showed a stable right knee prosthesis with no evidence of hardware failure or fracture. Patient was allowed out of bed, braulio ght-bear as tolerated with the knee immobilizer in place and the assistance of a walker and nurse. Her regular home medications were continued. She was given a regular diet. She did not develop any postoperative nausea or vomiting. She denies any postoperative chest pain or shortness of breath. She was placed on Eliquis 2.5 mg p.o. twice daily which is to start on postoperative day 1. She was also provided thigh-high CHAGO stockings and AV impulse boots during her inpatient stay. Vital signs remained stable although the evening of her surgery her blood pressure dropped extremely low and she became lightheaded. She did have a syncopal episode after going to the bathroom with nursing and the hospitalist consult was placed in the middle of the night on postoperative day 0. She was evaluated by the hospitalist and was transferred to [facility]. H/H and labs were within normal limits. EKG was normal. She did recover quickly. She continued to have near syncopal episodes with ambulation and standing. She continued to be able to participate in physical therapy and Occupational Therapy. She did have a lightheaded incident on July 04 after participating with physical therapy for a few minutes. She was placed back in bed and her symptoms resolved. She was provided increased IV fluids. Advised to hold off on any as needed pain medication. She was using Tylenol and tramadol for pain. [place] as needed tramadol and oxycodone was reimplemented on postoperative day 1 as her symptoms had continued to improve. Hospitalist continue to follow her during her inpatient stay. Case management was involved for disposition needs. She does have a walker at home. On postoperative day 2 her dressings were changed. She was deemed safe for discharge to her home from physical therapy, Occupational Therapy and hospitalist service and orthopedic service. She was discharged to her home in stable condition on July 05, 2023 with her . Discharge instructions were reviewed. Pain medications and blood thinners were sent to her pharmacy. She has scheduled follow-up. All questions were answered. (2) Lightheadedness: Hospilatist consulted. Increased fluids. Continue out of bed as tolerated. PRN pain medications held. Workup normal. Monitored during inpatient stay. (1) Lightheadedness: Plan: -Non-syncopal lightheadedness very likely an orthostatic/vasovagal event given pt's surgery on day prior, volume depletion after urination with resultant BP 70/40 - Acute blood loss anemia -S/p 500cc NSS bolus, maintenance fluids overnight, blood pressure stable, Hypotension secondary to hypovolemia, resuscitated (2) Status post right knee replacement: Plan: -07/03/23, Dr Jiménez Postoperative care, pain control, DVT ppx per primary orthopedics-apixiban 2.5 bid Supervising Physician Co-Signing Physician Notes I have personally seen, evaluated and examined the patient. I have also personally discussed the management of the patient with the resident physician and I agree with the exam findings documented in the history and physical examination and the documented assessment and plan unless otherwise stated below. Upon further history taking I did speak with the patient's registered nurse Emily -he does inform you that the patient did have what appeared to be morro syncope. She had just gotten up to use the restroom she micturated with assistance got back up to move back out to her bed in the doorway she complained of lightheadedness she was lowered into the bed by staff and was unresponsive for approximately a minute according to the registered nurse this is 1 code purp le was called. The patient's statements when she had arthroscopic knee surgery some years ago she had a similar event at home after discharge. The patient denies any current complaints. She denies any lightheadedness now she denies any chest pain ever this evening or shortness of breath this evening. The patient's EKG was reviewed she does have a sinus rhythm which appears to be a sinus dysrhythmia mildly irregular but no significant dysrhythmia PACs or PVCs. No acute ST-T abnormalities. 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 HEENT: Normocephalic atraumatic pupils are equal round and reactive to light bilaterally. No scleral icterus no conjunctival injection external auditory c anals are patent septum is in the midline nose is without discharge oral mucosa is pink and moist without lesion. NECK: Supple no rigidity no lymphadenopathy no thyromegaly no carotid bruits no JVD no masses. HEART: Regular rate and rhythm I do not appreciate any ectopy or rub. No murmur. LUNGS: Clear to auscultation bilaterally and anteriorly with no evidence of adventitious sounds/wheezes rales or rhonchi. ABDOMEN: Soft nontender, no rebound, no peritoneal signs, positive bowel sounds, no appreciable organomegaly. EXTREMITIES: Intact, no peripheral cyanosis, clubbing or edema. Strength is 5 out of 5 in extremities x4, no pathological reflexes. NEUROLOGICAL: Cranial nerves II through XII are grossly intact with no focal deficit elicited upon examination. No tremor. Assessment/plan -morro syncope probably secondary to vasovagal event which is multifactorial from just using the restroom to be in postoperative nature to pain medication and being probably mildly hypovolemic from extended n.p.o. status preoperatively and perioperatively. My clinical suspicion for cardiogenic syncope is extremely low. However given the patient's age and event described above she will be transferred to telemetry for telemetry monitoring. Laboratory studies are pending. If there is no further events the patient can probably be safely discharged home to follow-up with PCP. Certainly if there is any dysrhythmias or lab abnormalities will be addressed accordingly at the time of unveiling. Echocardiogram can be considered on day shift upon results of lab studies as well as telemetry monitoring overnight.
[2023-07-05] MEDS: CHOLECALCIFEROL 1,000 UNITS 25 MCG TAB PO SCH (08:12)
[2023-07-05] MEDS: APIXABAN 2.5 MG TAB PO SCH (08:12)
[2023-07-05] MEDS: ASCORBIC ACID 500 MG TAB PO SCH (08:12)
[2023-07-05] MEDS: DOCUSATE SODIUM 100 MG CAP PO SCH (08:16)
--- NOTE | 2023-07-05 10:54 | Orthopedic Progress Note ---
Date of Service July 05, 2023 Assessment & Plan (1) Status post right knee replacement: Plan: The patient was educated regarding today's findings. I suspect that some of her anxiety is contributing to the lightheadedness. She has not had any hypotensive episodes in the last 24 hours. No bradycardia. H&H are lower than her normal, but do not require transfusion. Her right knee dressing was changed today by me. Jose stocking was applied. She will leave this in place through the weekend. It can be changed on Sunday as needed for soiling. If she continues to do well with therapy this morning, she may be discharged to home today. Follow-up in the office as scheduled for staple removal in approximately 12 days. Continue with ice and elevation. She must use the walker when standing or ambulating. Call the office with any other concerns. Written discharge instructions have been provided. Postoperative prescriptions have been sent to her pharmacy. Care plan was discussed with Dr. Jiménez. Admission and Anticipated Discharge Date Admission Date: July 03, 2023 Subjective This 62-year-old female seen today while walking in the hallway. She is 2 days status post right total knee arthroplasty. She had issues with lightheadedness and hypotension postoperatively and was moved to the telemetry floor. She is currently ambulating in the [place] and attempting ascent and descent of stairs. She had an episode of lightheadedness today while walking in the [place]. There was a second episode while going up and down the steps. She had a third episode while changing her dressing. Telemetry has been fine during her entire floor stay. She had no episodes of hypotension this morning, even during her symptoms of lightheadedness. She denies any nausea or vomiting. Pain is reasonably controlled. Physical Exam Physical Exam: General: Well-developed, well-nourished, middle-aged female, in no acute distress. Sitting in a chair. Alert and oriented. Skin: Warm and dry with good turgor. Postsurgical dressings are in place on the right leg. Upon removal, she has a closed surgical incision on the anterior right knee. There is no active bleeding. Expected postoperative edema. No ecchymosis yet. No erythema or warmth. Musculoskeletal: The patient has full terminal extension. She flexes easily to around 45 degrees. She is able to set her quad but does require some minor assistance for a straight leg raise. Neurologic: Gross sensation is intact across the right leg by soft touch. Peripheral pulses are 2+. Results & Data Vital Signs (Past 12 Hours) Vital Signs Temp Pulse Pulse Pulse Resp BP Pulse Ox 07/05/23 08:00 36.9 C 72 16 141/69 H 97 07/05/23 07:25 81 07/05/23 02:53 37.2 C 80 18 143/88 H 95 07/04/23 23:22 37.2 C 76 18 139/82 96 07/04/23 22:50 78 O2 Del Method 07/05/23 08:00 Room Air 07/05/23 07:25 07/05/23 02:53 Room Air 07/04/23 23:22 Room Air 07/04/23 22:50
--- NOTE | 2023-07-05 15:52 | Orthopedic Progress Note ---
Date of Service July 05, 2023 Assessment & Plan (1) Lightheadedness: (2) Status post right knee replacement: Plan: stable for DC, instuction given (3) Hypotension: Admission and Anticipated Discharge Date Admission Date: July 03, 2023 Subjective improved lightheadedness, well w PT Results & Data Vital Signs (Past 12 Hours) Vital Signs Temp Pulse Pulse Resp BP Pulse Ox O2 Del Method 07/05/23 12:00 36.8 C 70 18 144/66 H 96 Room Air 07/05/23 08:00 36.9 C 72 16 141/69 H 97 Room Air 07/05/23 07:25 81
== END 2023-07-05 16:30 | disposition home or self-care (01) ==
LOC: PACUINP 08:24 → ASU 08:24 → 3E 15:18 → 2S 07-04 02:28
DX: I95.9 Hypotension, unspecified; Z88.2 Allergy status to sulfonamides; E78.5 Hyperlipidemia, unspecified; M41.9 Scoliosis, unspecified; Z79.899 Other long term (current) drug therapy; M17.11 Unilateral primary osteoarthritis, right knee